=== PATIENT | female | born 1950 | race Caucasian/White ===

== ENCOUNTER 2018-12-01 18:05 | Emergency (ER) | payer MEDICARE, BC ==
--- NOTE | 2018-12-01 19:31 | ED ---
Head Injury - HPI Summary HPI Summary: 68-year-old female presents with head injury today. She states she stood up and bumped her and her had on a cabinet. Denies any loss consciousness. Has no headache. No nausea or vomiting. No change in vision. Has a bruise noted to left side of head. Is on Coumadin. Has not had her Coumadin level checked in months is from out of town. Denies any neck pain. No other injury. Is on Coumadin for A. fib and a history of a pacemaker. - History Of Current Complaint Chief Complaint: EDHeadInjury Stated Complaint: FELL AND HIT HEAD ON BLOOD THINNER PER PT Time Seen by Provider: 12/01/18 19:24 Pain Intensity: 0 - Allergies/Home Medications Allergies/Adverse Reactions: Allergies Allergy/AdvReac Type Severity Reaction Status Date / Time No Known Allergies Allergy Verified 12/01/18 20:11 PMH/Surg Hx/FS Hx/Imm Hx Endocrine/Hematology History: Reports: Hx Anticoagulant Therapy Cardiovascular History: Reports: Hx Pacemaker/ICD Infectious Disease History: No Infectious Disease History: Denies: Traveled Outside the [place] in Last 30 Days - Family History Known Family History: Positive: Non-Contributory - Social History Substance Use Type: Reports: None Review of Systems Negative: Fever Negative: Chest Pain Negative: Shortness Of Breath Positive: Headache All Other Systems Reviewed And Are Negative: Yes Physical Exam Triage Information Reviewed: Yes Vital Signs On Initial Exam: Initial Vitals Temp Pulse Resp BP Pulse Ox 98.6 F 66 16 176/134 96 12/01/18 18:26 12/01/18 18:26 12/01/18 18:26 12/01/18 18:26 12/01/18 18:26 Vital Signs Reviewed: Yes Appearance: Positive: Well-Appearing Skin: Positive: Warm, Dry Head/Face: Positive: Other - bruise to left side of head Eyes: Positive: Normal, EOMI, ROSAURA, Conjunctiva Clear ENT: Positive: Normal ENT inspection, Pharynx normal, TMs normal Neck: Positive: Other: - nontender neck Respiratory/Lung Sounds: Positive: Clear to Auscultation, Breath Sounds Present Cardiovascular: Positive: Normal, RRR Musculoskeletal: Positive: Normal Neurological: Positive: Sensory/Motor Intact, Alert, Oriented to Person Place, Time, CN Intact II-III Psychiatric: Positive: Normal Diagnostics - Vital Signs Vital Signs Temp Pulse Resp BP Pulse Ox 12/01/18 18:26 98.6 F 66 16 176/134 96 - Laboratory Lab Statement: Any lab studies that have been ordered have been reviewed, and results considered in the medical decision making process. - CT brain CT Interpretation Completed By: Radiologist Summary of CT Findings: no acute findings Head Injury Course/Dx Course Of Treatment: 68-year-old female presents with head injury today. She states she stood up and bumped her and her had on a cabinet. Denies any loss consciousness. Has no headache. No nausea or vomiting. No change in vision. Has a bruise noted to left side of head. Is on Coumadin. Has not had her Coumadin level checked in months is from out of town. Denies any neck pain. No other injury. Is on Coumadin for A. fib and a history of a pacemaker. On exam has normal neuro exam. With being on blood thinners got CT. CT brain normal. inr 2.44. Gave concussion precautions. Told placed ice on the area. Patient understands agrees with plan. - Diagnoses Differential Diagnosis/HQI/PQRI: Concussion Without LOC, Contusion, Intracranial Bleed Provider Diagnoses: Head injury Discharge - Sign-Out/Discharge Documenting (check all that apply): Patient Departure Patient Received Moderate/Deep Sedation with Procedure: No - Discharge Plan Condition: Good Disposition: HOME Patient Education Materials: Head Injury (ED) Referrals: No Primary Care Phys,NOPCP [Primary Care Provider] - Additional Instructions: Place ice on area as needed Take Tylenol for headache every 6 hours Follow up with primary Return to ED if develop vomiting, severe headache, change in behavior, or any new or worsening symptoms - Billing Disposition and Condition Condition: GOOD Disposition: Home
[2018-12-01 21:12] LABS: INR 2.44 (0.82-1.09)
[2018-12-01 21:34] VITALS: BP 166/97
== END 2018-12-01 21:35 | disposition home or self-care (01) ==
LOC: ED 18:05
DX: S09.90XA Unspecified injury of head, initial encounter (principal); W22.09XA Striking against other stationary object, initial encounter; Z79.01 Long term (current) use of anticoagulants; Z95.810 Presence of automatic (implantable) cardiac defibrillator
CPT/HCPCS: 36415; 70450; 85610; 99283